=== PATIENT | female | born 1945 | race Caucasian/White ===

== ENCOUNTER 2019-11-10 09:02 | Outpatient (CLI) | payer MEDICARE, OTHER, SELFPAY ==
--- NOTE | ~2019-11-10 | MM_ITS ---
EXAMINATION: MM screening sheba BI w filemon HISTORY: Screening TECHNIQUE: Craniocaudal and mediolateral oblique 3-D tomosynthesis images were obtained and synthetic 2-D images were generated. CAD analysis was submitted and interpreted. COMPARISON: Comparison to multiple prior studies sequentially, with oldest reviewed study dated 09/09. BREAST PARENCHYMAL COMPOSITION: There are scattered areas of fibroglandular density. FINDINGS: There is no evidence of suspicious mass, calcification, or architectural distortion to sugg est malignancy in either breast. There has been no suspicious interval change. IMPRESSION: 1. No mammographic evidence of malignancy. 2. Recommend routine screening mammography in one year. BI-RADS Category 1: Negative Reviewed, dictated and finalized at location A.
== END 2019-11-10 09:03 | disposition home or self-care (01) ==
PROVIDERS: PCP Family Medicine; Visit Provider Family Medicine
DX: Z12.31 Encounter for screening mammogram for malignant neoplasm of breast (principal)
CPT/HCPCS: 77063; 77067

== ENCOUNTER 2020-02-07 00:35 | Outpatient (CLI) | payer MEDICARE, OTHER, SELFPAY ==
[2020-02-07 19:48] LABS: SARS-CoV-2 RNA PCR Negative
== END 2020-02-07 00:36 | disposition home or self-care (01) ==
LOC: ANHCOVIDDT 00:35
PROVIDERS: PCP Family Medicine; Visit Provider Internal Medicine Gastroenterology
DX: Z01.818 Encounter for other preprocedural examination (principal); Z20.828 Contact with and (suspected) exposure to other viral communicable diseases
CPT/HCPCS: 87635; C9803; U0003

== ENCOUNTER 2020-02-10 00:22 | Day surgery (SDC) | payer MEDICARE, OTHER, SELFPAY ==
[2020-02-03 14:31] VITALS: BMI 26.0
[2020-02-10 07:33] VITALS: BP 135/67; PULSE 65; RESP 16; TEMP 36.6; O2SAT 100; BMI 26.4
[2020-02-10] MEDS: LACTATED RINGERS 1,000 ML 150 ML IV CONT (07:44)
--- NOTE | 2020-02-10 07:58 | WPDANESEPPF ---
Anes - Initial Pre Proc Eval Procedure: Operation Date: 02/10/20 09:00 Proposed Procedures p Esophagogastroduodenoscopy - Farzad Buckley MD Date/Time: 02/10/20 07:58 Surgeon: Farzad Buckley MD Pre Op Diagnosis: Dyshphagia Patient Data Age: 74 Gender: F Height: 1.75 m Weight: 81.1 kg Last Vital Signs Temp 36.6 C 02/10/20 07:33 Pulse 65 02/10/20 07:33 Resp 16 02/10/20 07:33 BP 135/67 02/10/20 07:33 Pulse Ox 100 02/10/20 07:33 Allergies Allergy/AdvReac Type Severity Reaction Status Date / Time No Known Allergies Allergy Verified 02/10/20 07:32 Home Medications Medication Instructions Recorded Confirmed Type amitriptyline 25 mg PO DAILY 02/03/20 02/03/20 History pantoprazole 40 mg PO DAILY 02/03/20 02/03/20 History propranolol 40 mg PO DAILY 02/03/20 02/03/20 History simvastatin 40 mg PO DAILY 02/03/20 02/03/20 History Patient hx anesthesia problems: none Family hx anesthesia problems: none PMFSH Social History Social History Smoking status: Never smoker Alcohol intake: never Substance use type: does not use Living arrangements: alone Spiritual care concerns: No Anes - Eval Final PreProcedure Day of Procedure 02/10/20 07:58 Patient weight: overweight Heart: regular rate and rhythm Lungs: clear to auscultation and normal air movement Airway: Mallampati scale class II Neurological: alert and oriented Last oral intake: >/= 8 hours ASA classification: II Emergent: no Anesthetic plan: proceed Anesthesia type and monitoring: general GIVS Informed Consent: The patient's anesthetic plan and its attendant risks and benefits were discussed with the patient/family/POA. Questions were solicited and answers provided to the satisfaction of the patient/family/POA.
--- NOTE | 2020-02-10 08:07 | WPDGICN ---
Assessment and Plan Assessment and plan (1) Dysphagia: Code(s): R13.10 - Dysphagia, unspecified Status: Acute Assessment and Plan: patient has difficulty swallowing. Also has a history of acid reflux suspect that she may likely have esophageal web. Plan is for EGD to assess more thoroughly. At the present time continue anti reflux measures. Ppi should be continued. Further recommendations after endoscopy. GI Consult Note Consult date/time: 02/10/20 08:07 HPI: Nicolette Muniz is a 74 year old female Seen in evaluation at the request of Dr Daniel Araujo. patient has had difficulty swallowing for some time. Dating back at least 1 year. She states that food will catch in her throat. Typically this occurs with rice period as well as larger solid pieces of food. She denies any abdominal pain. She has intermittently had heartburn in the past for which she takes Protonix. She supplements this with Tums on a p.r.n. basis. She denies any ongoing heartburn. She denies any weight loss. She has had no bleeding. Her family history is noncontributory. Review of Systems Review of Systems: All systems reviewed & are unremarkable except as noted in HPI and below PMFSH Social History Social History Smoking status: Never smoker Alcohol intake: never Substance use type: does not use Living arrangements: alone Spiritual care concerns: No Meds Home Medications and Allergies Home Medications Medication Instructions Recorded Confirmed Type amitriptyline 25 mg PO DAILY 02/03/20 02/03/20 History pantoprazole 40 mg PO DAILY 02/03/20 02/03/20 History propranolol 40 mg PO DAILY 02/03/20 02/03/20 History simvastatin 40 mg PO DAILY 02/03/20 02/03/20 History Allergies Allergy/AdvReac Type Severity Reaction Status Date / Time No Known Allergies Allergy Verified 02/10/20 07:32 Vital Signs Vital Signs - 24 hr 02/10/20 07:33 Temperature 97.8 F Pulse Rate 65 Respiratory Rate 16 Blood Pressure 135/67 Pulse Oximetry 100 Exam Narrative: Exam Narrative: Physical exam reveals patient to be alert. Vital signs stable. HEENT exam unremarkable. Lungs are clear to auscultation and percussion. Heart is without murmur or extra sounds. Abdominal exam bowel sounds are present soft nontender with no organomegaly. Digital external rectal exam unremarkable
[2020-02-10] MEDS: BENZOCAINE (*SP) 60 ML SPRAY CAN (HURRICAINE) 1 SPRAY MUCOUS MEM (08:44)
[2020-02-10 08:54] VITALS: BP 137/67; PULSE 74; RESP 22; O2SAT 100
[2020-02-10 09:04] VITALS: BP 128/80; PULSE 67; RESP 22; O2SAT 100
[2020-02-10 09:14] VITALS: BP 131/68; PULSE 64; RESP 18; O2SAT 100
== END 2020-02-10 09:52 | disposition home or self-care (01) ==
PROVIDERS: PCP Family Medicine; Visit Provider Internal Medicine Gastroenterology
PROC: 0DJ08ZZ Inspection of Upper Intestinal Tract, Via Natural or Artificial Opening Endoscopic (ICD-10-PCS; CPT 43235; principal; 2020-02-10 09:00)
DX: Q39.4 Esophageal web (principal); K44.9 Diaphragmatic hernia without obstruction or gangrene
CPT/HCPCS: 43450; 43235; J2704; J7120

== ENCOUNTER 2021-02-05 00:36 | Day surgery (SDC) | payer MEDICARE, SELFPAY ==
[2021-01-16 14:49] VITALS: BMI 26.1
[2021-02-05 07:43] VITALS: BP 125/67; PULSE 75; RESP 16; TEMP 36.6; O2SAT 100; BMI 25.8
[2021-02-05] MEDS: LACTATED RINGERS 1,000 ML 150 ML IV CONT (07:52)
--- NOTE | 2021-02-05 08:08 | WPDANESEPPF ---
Anes - Initial Pre Proc Eval Procedure: Operation Date: 02/05/21 09:00 Proposed Procedures p Colonoscopy - Farzad Buckley MD Date/Time: 02/05/21 08:08 Surgeon: Farzad Buckley MD Pre Op Diagnosis: MARY Patient Data Age: 75 Gender: F Height: 1.73 m Weight: 77 kg Last Vital Signs Temp 36.6 C 02/05/21 07:43 Pulse 75 02/05/21 07:43 Resp 16 02/05/21 07:43 BP 125/67 02/05/21 07:43 Pulse Ox 100 02/05/21 07:43 Allergies Allergy/AdvReac Type Severity Reaction Status Date / Time No Known Allergies Allergy Verified 02/05/21 07:41 Home Medications Medication Instructions Recorded Confirmed Type amitriptyline 25 mg PO DAILY 02/03/20 02/05/21 History pantoprazole 40 mg PO DAILY 02/03/20 02/05/21 History propranolol 40 mg PO DAILY 02/03/20 02/05/21 History simvastatin 40 mg PO DAILY 02/03/20 02/05/21 History ferrous sulfate [FeroSul] 325 mg PO BID 01/16/21 02/05/21 History sumatriptan succinate [Imitrex] 50 mg PO Q4-6H PRN 01/16/21 02/05/21 History Patient hx anesthesia problems: none Family hx anesthesia problems: none Results Review: All pre-operative results and documents have been reviewed as part of the pre-operative evaluation. [facility] Past Medical History Medical History (Updated 02/05/21 @ 08:09 by Flex Ramirez MD) Chronic GERD Dysphagia Hyperlipidemia Social History Social History Smoking status: Never smoker Alcohol intake: never Substance use type: does not use Living arrangements: alone Spiritual care concerns: No Anes - Eval Final PreProcedure Day of Procedure 02/05/21 08:08 Patient weight: overweight Heart: regular rate and rhythm Lungs: clear to auscultation and normal air movement Airway: Mallampati scale class II Neurological: alert and oriented Last oral intake: >/= 8 hours ASA classification: II Emergent: no Anesthetic plan: proceed Anesthesia type and monitoring: general GIVS Results Review: All pre-operative results and documents have been reviewed as part of the pre-operative evaluation. Informed Consent: The patient's anesthetic plan and its attendant risks and benefits were discussed with the patient/family/POA. Questions were solicited and answers provided to the satisfaction of the patient/family/POA.
--- NOTE | 2021-02-05 08:12 | WPDGICN ---
Assessment and Plan Assessment and plan (1) MARY (iron deficiency anemia): Code(s): D50.9 - Iron deficiency anemia, unspecified Status: Acute Assessment and Plan: Patient has ongoing iron deficiency anemia. Previous EGD revealed no alarming findings. 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 Plan is for colonoscopy at this time because of iron deficient indices. If negative stool Hemoccult is advised. Iron replacement should resume after endoscopy. (2) Chronic GERD: Code(s): K21.9 - Gastro-esophageal reflux disease without esophagitis Status: Acute Assessment and Plan: Patient has chronic GE reflux. Would recommend continuing pantoprazole 40mg p.o. daily as well as anti-reflux measures. (3) Dysphagia: Code(s): R13.10 - Dysphagia, unspecified Status: Acute Assessment and Plan: Patient has recurrent dysphagia. 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 She has been maintained on PPI therapy. Plan is for follow-up EGD electively because of dysphagia as well as her iron deficiency. GI Consult Note Consult date/time: 02/05/21 08:12 HPI: Nicolette Muniz is a 75 year old female I am asked to see because of iron deficiency anemia. Patient has a history of chronic GE reflux disease. An EGD performed 1 year ago revealed distal esophageal web. This was dilated at that time. Patient has been maintained on pantoprazole 40mg p.o. daily. Lab tests have revealed that she has persistent iron deficient indices. For this reason she is referred for colonoscopy patient states that her bowel habits are normal. She denies abdominal pain. She has had no bleeding. Family history noncontributory. She does report occasional dysphagia that is return. Despite taking the pantoprazole. She denies any weight loss or obvious bleeding. Review of Systems Review of Systems: All systems reviewed & are unremarkable except as noted in HPI and below PMFSH Past Medical History Medical History (Updated 02/05/21 @ 08:15 by Farzad Buckley MD) Chronic GERD Dysphagia Hyperlipidemia Social History Social History Smoking status: Never smoker Alcohol intake: never Substance use type: does not use Living arrangements: alone Spiritual care concerns: No Meds Home Medications and Allergies Home Medications Medication Instructions Recorded Confirmed Type amitriptyline 25 mg PO DAILY 02/03/20 02/05/21 History pantoprazole 40 mg PO DAILY 02/03/20 02/05/21 History propranolol 40 mg PO DAILY 02/03/20 02/05/21 History simvastatin 40 mg PO DAILY 02/03/20 02/05/21 History ferrous sulfate [FeroSul] 325 mg PO BID 01/16/21 02/05/21 History sumatriptan succinate [Imitrex] 50 mg PO Q4-6H PRN 01/16/21 02/05/21 History Allergies Allergy/AdvReac Type Severity Reaction Status Date / Time No Known Allergies Allergy Verified 02/05/21 07:41 Vital Signs Vital Signs - 24 hr 02/05/21 07:43 Temperature 97.8 F Pulse Rate 75 Respiratory Rate 16 Blood Pressure 125/67 Pulse Oximetry 100 Exam Narrative: physical exam reveals patient be alert. Vital signs stable. HEENT exam reveals no icterus. Lungs are clear to auscultation and percussion. Heart is without murmur or extra sounds. Abdominal exam bowel sounds present soft nontender no hepatosplenomegaly. Digital external rectal exam is normal.
[2021-02-05 09:05] VITALS: BP 120/64; PULSE 77; RESP 14; O2SAT 100
[2021-02-05 09:15] VITALS: BP 130/68; PULSE 74; RESP 18; O2SAT 100
[2021-02-05 09:25] VITALS: BP 154/79; PULSE 66; RESP 13; O2SAT 100
== END 2021-02-05 09:37 | disposition home or self-care (01) ==
PROVIDERS: PCP Family Medicine; Visit Provider Internal Medicine Gastroenterology
PROC: 0DJD8ZZ Inspection of Lower Intestinal Tract, Via Natural or Artificial Opening Endoscopic (ICD-10-PCS; CPT 45378; principal; 2021-02-05 09:00)
DX: D50.9 Iron deficiency anemia, unspecified (principal); K64.8 Other hemorrhoids; K57.30 Diverticulosis of large intestine without perforation or abscess without bleeding; K21.9 Gastro-esophageal reflux disease without esophagitis; R13.10 Dysphagia, unspecified; E78.5 Hyperlipidemia, unspecified
CPT/HCPCS: 45378; J2704; J7120

== ENCOUNTER → 2021-11-11 09:49 | Outpatient (CLI) | payer MEDICARE, SELFPAY ==
--- NOTE | ~2021-11-11 | XR_ITS ---
EXAMINATION: XR hip LT min 2V INDICATION: Left hip pain TECHNIQUE: Two views of the left obtained. COMPARISON: 06/07/2004 FINDINGS: Bone alignment is normal. There is no fracture. There is mild osteoarthritis of the hip. Th e soft tissues are unremarkable. IMPRESSION: 1. Mild osteoarthritis without acute osseous abnormality. Reviewed, dictated and finalized at location A.
== END ==
PROVIDERS: PCP Physician Assistant; Visit Provider Physician Assistant
DX: M16.12 Unilateral primary osteoarthritis, left hip (principal)
CPT/HCPCS: 73502

== ENCOUNTER 2023-11-04 08:28 | Outpatient (CLI) | payer MEDICARE, SELFPAY ==
--- NOTE | ~2023-11-04 | DEXA_ITS ---
Bone Density Report Name: CLARE NEFF Age: 78 Sex: Female Ethnicity: White Date of : 1945 Indication: postmenopausal; screening for osteoporosis; height loss; cancer; Referring Provider: SUSANNA SCOTT Study: Bone densitometry was performed. Exam Date: November 04, 2023 Accession number: [id number] Bone Density: Region BMD T-score Z-score Classification AP Spine(L1-L4) 1.054 0.1 2.6 Normal Femoral Neck (Left) 0.725 -1.1 1.1 Osteopenia Total Hip (Left) 0.848 -0.8 1.1 Normal Femoral Neck (Right) 0.744 -0.9 1.2 Normal Total Hip (Right) 0.863 -0.6 1.2 Normal Total Hip Mean 0.856 -0.7 1.2 Normal World Health Organization criteria for BMD impression classify patients as: Normal (T-score at or above -1.0), Osteopenia (T-score between -1.0 and -2.5), or Osteoporosis (T-score at or below -2.5). 10-year Fracture Risk(1): Major Osteoporotic Fracture 11% Hip Fracture 1.9% Reported Risk Factors: [place] (), Neck BMD=0.725, BMI=28.0 (1) FRAX(R) Version 3.08. Fracture probability calculated for an untreated patient. Fracture probability may be lower if the patient has received treatment. Clinical Information Provided by Patient: Has the following medical conditions: Cancer Patient maximum height was 69.0 No regular weight bearing exercise Drinks caffeinated beverages Onset of menses at age 20 Number of children 2 Impression: The patient has low bone mass, based on the Left Femoral Neck T-score. The patient has an estimated ten-year risk of hip fracture of 1.9% and an estimated ten-year risk of major fracture of 11%, based on the WHO FRAX algorithm. Discussion: BONE DENSITY IS LOW AT ONE OR MORE SKELETAL SITES. This patient's lowest T-score is low at one or more skeletal sites. It meets the World Health Organization's (WHO) criteria for ?low bone mass? (T-score between -1.0 and -2.5). The patient's 10-year risk of fracture as calculated by FRAX is less than the threshold where pharmacological therapy is recommended by the National Osteoporosis Foundation (NOF). However, all treatment decisions require clinical judgment and consideration of individual patient factors, including patient preferences, comorbidities, previous drug use, risk factors not captured in the FRAX model (e.g., frailty, falls, vitamin D deficiency, increased bone turnover, interval significant decline in bone density) and possible under or overestimation of fracture risk by FRAX. The patient should follow a healthful lifestyle (good nutrition with adequate calcium and vitamin D, and appropriate weight-bearing exercise). Follow-Up: Consider repeating this study in 2 to 3 years to reassess this patient's status, or sooner if there is some new clinical indication. Reported by: DANNI on
--- NOTE | ~2023-11-04 | MM_ITS ---
EXAMINATION: MM screening sheba BI w filemon HISTORY: Screening TECHNIQUE: Craniocaudal and mediolateral oblique 3-D tomosynthesis images were obtained and synthetic 2-D images were generated. CAD analysis was submitted and interpreted. COMPARISON: Comparison to multiple prior studies sequentially, with oldest reviewed study dated 06/2016. BREAST PARENCHYMAL COMPOSITION: Not dense: There are scattered areas of fibroglandular density. FINDINGS: The right breast is stable without evidence for malignancy. There is a developing asymmetry in the mid outer aspect of the left breast, middle third and a mass in the upper outer quadrant of t he left breast which appears increased in density on MLO view. The right breast is stable without tiffany dence for malignancy. IMPRESSION: 1. Increasing density of left breast mass, upper outer quadrant and new developing asymmetry in the u pper outer quadrant. 2. Additional mammographic views and possible breast ultrasound are recommended. BI-RADS Category 0: Incomplete: Needs additional imaging evaluation. Reviewed, dictated and finalized at location B. IMPRESSION: 1. Increasing density of left breast mass, upper outer quadrant and new develop ing asymmetry in the upper outer quadrant. 2. Additional mammographic views and possible breast ultrasound are recommended . BI-RADS Category 0: Incomplete: Needs additional imaging evaluation.
== END 2023-11-04 08:29 | disposition home or self-care (01) ==
LOC: ANHIMG 08:32
PROVIDERS: PCP Family Medicine; Visit Provider Physician Assistant
DX: Z12.31 Encounter for screening mammogram for malignant neoplasm of breast (principal); N63.21 Unspecified lump in the left breast, upper outer quadrant; R92.8 Other abnormal and inconclusive findings on diagnostic imaging of breast; M85.89 Other specified disorders of bone density and structure, multiple sites; Z78.0 Asymptomatic menopausal state; Z13.820 Encounter for screening for osteoporosis
CPT/HCPCS: 77063; 77067; 77080

== ENCOUNTER 2023-11-24 10:54 | Outpatient (CLI) | payer MEDICARE, SELFPAY ==
--- NOTE | ~2023-11-24 | MMUS_ITS ---
EXAMINATION: MM diagnostic sheba LT w filemon, US breast LT limited HISTORY: Follow-up left breast mass TECHNIQUE: Additional 3-D tomosynthesis images of the left breast were performed and synthetic 2-D im ages were generated. CAD analysis was submitted and interpreted. High resolution Limited left breast ultrasound was performed. COMPARISON: Comparison to multiple prior studies sequentially, with oldest reviewed study dated 06/2016. BREAST PARENCHYMAL COMPOSITION: Not dense: There are scattered areas of fibroglandular density. FINDINGS: MAMMOGRAPHIC FINDINGS: There is a low-density mass in the upper outer quadrant of the left breast anteriorly. There are no s uspicious calcifications or architectural distortion. ULTRASOUND: Limited left breast ultrasound: At 12:30, 3 cm from the nipple there is a 9 mm cyst. At 6:00, 6 cm fr om the nipple there is a 5 mm complicated cysts. No suspicious masses to suggest malignancy. IMPRESSION: 1. No evidence for malignancy in the left breast. 2. Routine yearly screening mammogram and regular clinical breast examination are recommended. BI-RADS Category 2: Benign finding(s). Reviewed, dictated and finalized at location B. IMPRESSION: 1. No evidence for malignancy in the left breast. 2. Routine yearly screening mammogram and regular clinical breast examination a re recommended. BI-RADS Category 2: Benign finding(s).
== END 2023-11-24 10:55 | disposition home or self-care (01) ==
LOC: ANHIMG 10:56
PROVIDERS: PCP Family Medicine; Visit Provider Physician Assistant
DX: N63.25 Unspecified lump in the left breast, overlapping quadrants (principal)
CPT/HCPCS: 76642; 77061; 77065; G0279

== ENCOUNTER 2024-06-15 07:21 | Emergency (ER) | payer MEDICARE, SELFPAY ==
--- NOTE | ~2024-06-15 | CT_ITS ---
CTA brain carotid Ordering provider: Alma Wood MD History: . dizziness . Comparison: August 10, 2015 Technique: CT angiogram head was performed following timed intravenous injection of contrast. Thin sl ice axial images and reformatted coronal images were obtained. Three dimensional reformatted images o f the brain were also obtained using a Vitrea workstation. Radiation reduction technique utilized. Th e dose-length product was 1616.49 mGy-cm. 100 mL Omnipaque 350 was given IV. FINDINGS: --ANTERIOR AND MIDDLE CEREBRAL ARTERIES AND BRANCHES: Normal caliber and contour. --INTERNAL CAROTID ARTERIES: Mild atheromatous disease but no significant stenosis. No occlusion. --BASILAR ARTERY AND BRANCHES: Small caliber and normal contour. No atheromatous disease. --POSTERIOR CEREBRAL ARTERIES: Normal caliber and contour --POSTERIOR COMMUNICATING ARTERIES: visualized bilaterally and continues as the posterior cerebral ar teries. --ANEURYSM: None visualized. --BRAIN: Normal for patient's age. --BONES AND SUPERFICIAL SOFT TISSUES: Normal. --PARANASAL SINUSES AND MASTOIDS: Normal. IMPRESSION: Posterior communicating arteries continue as the posterior cerebral arteries. Small caliber of the ba silar artery. Otherwise, Normal CTA head. CTA brain carotid Ordering provider: Alma Wood MD History: . dizziness . Comparison: None. Technique: CT angiogram neck was performed following timed intravenous injection of contrast. Thin sl ice axial images and reformatted coronal images were obtained. Three dimensional reformatted images o f the neck were also obtained using a HASHa workstation. Automated exposure control and iterative re construction technique were employed. The dose-length product was 1616.49 mGy-cm. 100 mL Omnipaque 35 0 was given IV. FINDINGS: RIGHT CERVICAL CAROTID ARTERY: Normal caliber and contour. Percent stenosis per NASCET criteria is 0 %. No carotid dissection. Otherwise, no significant atheromatous disease or stenosis of the cervical carotid system. LEFT CERVICAL CAROTID ARTERY: Mild atheromatous disease of the carotid bulb and proximal internal car otid artery without significant stenosis. Percent stenosis per NASCET criteria is 10%. No carotid di ssection. Otherwise, no significant atheromatous disease or stenosis of the cervical carotid system. VISUALIZED BILATERAL INTRACRANIAL CAROTID ARTERIES: Mild atheromatous disease. VERTEBRAL BASILAR SYSTEM: Small caliber and normal contour VISUALIZED AORTIC ARCH AND BRANCHING VESSELS: Mild atheromatous disease but no significant stenosis. SOFT TISSUES: Normal. Atelectatic changes in the lung apices. CERVICAL SPINE: Age appropriate degenerative changes. IMPRESSION: Normal CTA neck. Percent stenosis per NASCET criteria is 0% on the right and 10% on the left side. Reviewed, dictated and finalized at location A. IMPRESSION: Posterior communicating arteries continue as the posterior cerebral arteries. S mall caliber of the basilar artery. Otherwise, Normal CTA head. CTA brain carotid Ordering provider: Alma Wood MD History: . dizziness . Comparison: None. Technique: CT angiogram neck was performed following timed intravenous injectio n of contrast. Thin slice axial images and reformatted coronal images were obta ined. Three dimensional reformatted images of the neck were also obtained using a Vitrea workstation. Automated exposure control and iterative reconstruction technique were employed. The dose-length product was 1616.49 mGy-cm. 100 mL Omn ipaque 350 was given IV. FINDINGS: RIGHT CERVICAL CAROTID ARTERY: Normal caliber and contour. Percent stenosis per NASCET criteria is 0%. No carotid dissection. Otherwise, no significant ather omatous disease or stenosis of the cervical carotid system. LEFT CERVICAL CAROTID ARTERY: Mild atheromatous disease of the carotid bulb and proximal internal carotid artery without significant stenosis. Percent stenosi s per NASCET criteria is 10%. No carotid dissection. Otherwise, no significant atheromatous disease or stenosis of the cervical carotid system. VISUALIZED BILATERAL INTRACRANIAL CAROTID ARTERIES: Mild atheromatous disease. VERTEBRAL BASILAR SYSTEM: Small caliber and normal contour VISUALIZED AORTIC ARCH AND BRANCHING VESSELS: Mild atheromatous disease but no significant stenosis. SOFT TISSUES: Normal. Atelectatic changes in the lung apices. CERVICAL SPINE: Age appropriate degenerative changes. IMPRESSION: Normal CTA neck. Percent stenosis per NASCET criteria is 0% on the right and 1 0% on the left side.
[2024-06-15 07:12] VITALS: BP 181/80; PULSE 67; RESP 18; TEMP 36.4; O2SAT 98
--- NOTE | 2024-06-15 07:21 | ECG_ITS ---
Test Date: 2024-06-15 07:27:21 Measurements Intervals [place] Rate: 69 P: -18 VT: 134 QRS: 21 QRSD: 100 T: 27 QT: 391 QTc: 422 Interpretive Statements SINUS RHYTHM NORMAL ECG No previous ECG available for comparison Electronically Signed On 06-15-2024 12:26:20 CDT by Darwin Block M.D.
[2024-06-15 07:25] VITALS: BP 181/80; PULSE 70
[2024-06-15 07:26] VITALS: BP 201/80; PULSE 79
[2024-06-15 07:41] LABS: Basophils Absolute Auto 0.1 K/mm3 (0.0-0.1); Basophils Percent Auto 1.1 % (0.2-1.2); Eosinophils Absolute Auto 0.2 K/mm3 (0-0.3); Eosinophils Percent Auto 2.4 % (0-4.4); Hematocrit 41.4 % (37.0-47.0); Hemoglobin 13.1 g/dL (12.0-15.0); Immature Granulocyte Absolute 0.02 K/mm3 (0.00-0.031); Immature Granulocyte Percent A 0.3 % (0-0.5); Lymphocytes Percent Auto 22.8 % (18.3-44.2); Mean Corpuscular HGB Conc 31.6 g/dl (32-36); Mean Corpuscular Hemoglobin 29.4 pg (26-34); Mean Corpuscular Volume 92.8 fl (80-100); Mean Platelet Volume 9.4 fl (7.4-10.4); Monocytes Absolute Auto 0.6 K/mm3 (0.1-0.6); Monocytes Percent Auto 8.7 % (2.6-8.5); Neutrophils Absolute Auto 4.5 K/mm3 (1.3-6.7); Neutrophils Percent Auto 64.7 % (45.5-73.1); Platelet Count Result 293 k/mm3 (150-375); Red Blood Count 4.46 M/mm3 (4.2-5.4)
--- NOTE | 2024-06-15 07:45 | ED.DIZZY ---
HPI - Dizziness General Chief Complaint: Dizziness Stated Complaint: dizzy Time Seen by Provider: 06/15/24 07:35 Source: patient and family Limitations: no limitations History of Present Illness HPI Narrative: Patient presents with report of dizziness. Experiencing nausea, especially w/ movement. Can't get her bearings. Children think speech slurred. No meds taken yet. On amytriptiline for migraines. History basal cell cancer s/p Mohs for removal and photodynamic therapy yesterday for which she has been avoiding light. Denies ear pain, fullness, or tinnitus. No paresthesias. Had near syncope. Doesn't feel like room is spinning but having dysequilibrium. Got lightheaded. No blurred vision or diplopia. She reports awakening and symptoms started, believes possibly when she turned her head to the side though unknown which way. No headache. Takes simvastatin and 12mg amytriptiline. No recent falls. Has prescriptoin for Imitrex but last taken 2-3 months ago. This has never happened before. Related Data Home Medications ?Medication ?Instructions ?Recorded ?Confirmed ?Last Taken ?Type propranolol 40 mg tablet 40 mg PO DAILY 02/03/20 05/07/22 Unknown History Allergies Allergy/AdvReac Type Severity Reaction Status Date / Time No Known Allergies Allergy Verified 06/15/24 07:27 [facility] Past Medical History Medical History Skin cancer Insomnia Mixed incontinence Migraines MARY (iron deficiency anemia) Chronic GERD Hyperlipidemia Surgical History Surgical History Hx of bilateral cataract extraction 2022 History of removal of cyst Left Breast 1973 History of tubal ligation History of colonoscopy Family History Family History Mother Carcinoma of colon Bladder cancer Father Heart disease Sibling Non Hodgkin's lymphoma Brain cancer Social History Social History Smoking status: Never smoker Alcohol intake: never Substance use: never Substance use type: does not use Do You Feel Safe in your Home?: Yes Lack of Transportation: No Lack of Food: Never True Current Housing: I Have Housing Concerned About Future Housing: No Difficulty Paying Gas/Electric Bills: No Difficulty Paying for Meds: No Currently Unemployed: No Education: Trade/Vocational Certificate Living arrangements: with family Occupation/Education: retired Gender identity (if verbalized by the patient): Female Sexual Orientation (if Verbalized by the Patient): Straight or Heterosexual Spiritual care concerns: No Exam Narrative: GENERAL: Well-appearing, well-nourished, and in no acute distress. HEAD: Normocephalic, atraumatic. EYES: Non injected, non icteric. Horizontal extraocular movements intact but with bilateral mild/faint bilateral left beating nystagmus, fatigable after 3 beats. No vertical nystagmus. No loss of peripheral visual iyer. ENT: Nares clear, no rhinorrhea or epistaxis. Left tympanic membrane easily visualized and pearly smith. No erythema in external auditory canals. Right external auditory canal with cerumen but it is not impacted. NECK: Supple. CHEST: Speaking in full sentences. No respiratory distress. HEART: Regular rate and rhythm. . ABDOMEN: Soft, nondistended. EXTREMITIES: Normal range of motion. No lower extremity edema. SKIN: Warm, dry, no rash. NEURO: No focal deficits. Alert and oriented x3. Nurscw-ahhz-drklin bilaterally symmetric without ataxia. Patient speaks clearly w/o expressive/receptive aphasia or dysarthria. No extinction. Answers all questions appropriately. No abnormal movements appreciated. No motor drift. Sensation intact throughout. PSYCH: Normal mood and affect. Course Vital Signs Vital signs: Vital Signs Temperature 97.6 F 06/15/24 07:12 Pulse Rate 67 06/15/24 07:12 Respiratory Rate 18 06/15/24 07:12 Blood Pressure 181/80 H 06/15/24 07:12 Pulse Oximetry 98 06/15/24 07:12 Oxygen Delivery Room Air 06/15/24 07:12 Temperature 97.6 F 06/15/24 07:12 Pulse Rate 63 06/15/24 10:32 Respiratory Rate 13 06/15/24 10:32 Blood Pressure 136/59 L 06/15/24 10:32 Pulse Oximetry 98 06/15/24 10:32 Oxygen Delivery Room Air 06/15/24 07:12 MDM - Dizziness MDM Narrative Medical decision making narrative: Patient presents with acute onset dizziness, lightheadedness, dysequilibrium and nausea upon awakening. She believes symptoms were preceded by her turning her head though unsure. Does not quite describe room spinning though admits it is hard to describe. In the emergency department she is afebrile with vital signs notable for hypertension. If vertiginous, DIFFERENTIAL DIAGNOSES Central causes: infection ( encephalitis, meningitis, cerebritis); vertebrobasilar arterial insufficiency, subclavian steal syndrome, cerebellar or brainstem hemorrhage or infarction, vertebrobasilar migraine, trauma ( temporal bone fracture, post concussive syndrome); tumor (brainstem or cerebellum); MS; temporal lobe epilepsy Peripheral causes: Foreign body, cerumen impaction, acute otitis media, labyrinthitis, benign paroxysmal positional vertigo, Meniere's disease, vestibular neuronitis, perilymphatic fistula, trauma, motion sickness, acoustic neuroma, ototoxic medications Patient's description of symptoms occurring when she turned her head and especially exacerbated by this maneuver do sound consistent with BPPV. She does have other risk factors so will proceed with imaging (age, diagnosis of skin cancer s/p Moh's so in theory in remission but photodynamic therapy yesterday and cancer with proclivity to metastesize to brain) Patient reassessed after dose of meclizine and is feeling markedly improved. She no longer has nausea or any of her other symptoms vertiginous or otherwise -no lightheadedness, dizziness, or disequilibrium although she states she has not got a bed. Gait assessment is performed by nurse who states that she does well, steady on her feet and patient reports continuing to feel good. Discussed the presumptive diagnosis but the level of uncertainty. Advised follow up and strict ED return follow up. Provided Rx for meclizine in the interim. Proivded referral contact info for both ENT and neurology if persistent episodes that seem to be consistent with BPPV. Differential Diagnosis Differential diagnosis: Likely other (hypertensive crisis; migraine) Lab Data Attestation: I reviewed the patient's lab results. 06/15/24 07:36 06/15/24 07:36 Labs: Lab Results 06/15/24 Range/Units 07:36 WBC 7.0 (4.5-10.0) K/mm3 RBC 4.46 (4.2-5.4) M/mm3 Hgb 13.1 (12.0-15.0) g/dL Hct 41.4 (37.0-47.0) % MCV 92.8 (80-100) fl MCH 29.4 (26-34) pg MCHC 31.6 L (32-36) g/dl RDW 13.0 (11.5-14.5) % Plt Count 293 (150-375) k/mm3 MPV 9.4 (7.4-10.4) fl Immature Gran % (Auto) 0.3 (0-0.5) % Neut % (Auto) 64.7 (45.5-73.1) % Lymph % (Auto) 22.8 (18.3-44.2) % Humphreys % (Auto) 8.7 H (2.6-8.5) % Eos % (Auto) 2.4 (0-4.4) % Baso % (Auto) 1.1 (0.2-1.2) % Lymph # (Auto) 1.60 (0.9-3.2) K/mm3 Humphreys # (Auto) 0.6 (0.1-0.6) K/mm3 Eos # (Auto) 0.2 (0-0.3) K/mm3 Baso # (Auto) 0.1 (0.0-0.1) K/mm3 Abs Immat Gran (auto) 0.02 (0.00-0.031) K/mm3 Absolute Neuts (auto) 4.5 (1.3-6.7) K/mm3 Absolute Nucleated RBC 0.000 (0.0-0.012) K/mm3 Nucleated RBC % 0.0 (0.0-0.2) % Sodium 139 (137-145) mmol/L Potassium 3.9 (3.4-5.0) mmol/L Chloride 105 (98-107) mmol/L Carbon Dioxide 27 (22-30) mmol/L Anion Gap 7 (4-12) mmol/L BUN 15 (7-17) mg/dL Creatinine 0.80 (0.7-1.0) mg/dL Estim Creat Clear Calc 52 ml/min Estimated GFR > 60 (59 - ) Glucose 124 H (65-110) mg/dL Calcium 9.6 (8.4-10.2) mg/dL Total Bilirubin 0.5 (0.2-1.3) mg/dL AST 21 (14-36) U/L ALT 19 (6-35) U/L Alkaline Phosphatase 71 (38-126) U/L Troponin I < 0.012 (0.000-0.034) ng/mL Total Protein 7.0 (6.3-8.2) g/dL Albumin 4.3 (3.5-5.1) g/dL Imaging Data Radiologist's impression: IMPRESSION: Normal CTA neck. Percent stenosis per NASCET criteria is 0% on the right and 10% on the left side. ECG Data EKG #1: Attestation: I personally reviewed and interpreted this ECG as follows: ECG completion date: 06/15/24 ECG completion time: 07:27 Interpretation: Normal sinus rhythm at a rate of 69 beats per minute. VA interval 134. QRS 100. QT/QTC 391/411. Good R-wave progression across the precordial leads. T-wave inversion isolated to lead 3 but otherwise upright in normal in contiguous inferior leads 2 and AVF. No other T-wave inversion. Normal ECG. Discharge Plan Discharge Clinical Impression: Near syncope, Left carotid artery stenosis, Dizziness Patient Disposition: Home, Self-Care Condition: Stable Instructions: Antibiotic Form, Vertigo (DC), Carotid Artery Disease (DC), Benign Paroxysmal Positional Vertigo (DC), Near Syncope (ED), Lightheadedness (ED), Dizziness (ED) Additional Instructions: As we discussed, the exact etiology of your symptoms is hard to explicitly diagnose given you had features of dizziness/lightheadedness as well as disequilibrium and vertigo. The fact that your symptoms were preceded her exacerbated by movement of her head does suggest possible BPPV like we talked about, especially given your positive response to the medication given. Other considerations are included in your discharge instructions. Recommend continue to take your medications as prescribed and you can trial this medication again. Follow-up with primary care physician. If you do not have 1 the name of doctors listed below. If this continues to occur you can also elect to follow-up with ENT (ear nose and throat)/otolaryngology or a neurologist, both the specialists deal with these conditions. Referral contact information has been provided for all below. Return to the emergency department with any new or worsening symptoms. You had a small degree (10%) carotid artery stenosis on the left. Your primary care physician can also help arrange follow-up for continued monitoring for this as needed. If you do not have a primary care physician the name of 1 is listed below Patient Language: Dominican Prescriptions: New meclizine 25 mg tablet,chewable 25 mg PO DAILY PRN (Reason: dizziness) Qty: 20 0RF No Action tolterodine 4 mg capsule,extended release 24hr 4 mg PO DAILY Qty: 30 3RF docusate sodium [Colace] 100 mg capsule 100 mg PO DAILY Qty: 30 0RF propranolol 40 mg tablet 40 mg PO DAILY amitriptyline 25 mg tablet See Rx Instructions .ROUTE .COMPLEX Qty: 90 3RF Dose Instruction: TAKE 1 TABLET AT BEDTIME Rx Instructions: TAKE 1 TABLET AT BEDTIME pantoprazole 40 mg tablet,delayed release (DR/EC) See Rx Instructions .ROUTE .COMPLEX Qty: 90 3RF Dose Instruction: TAKE 1 TABLET EVERY DAY Rx Instructions: TAKE 1 TABLET EVERY DAY simvastatin 40 mg tablet 40 mg PO DAILY Qty: 90 3RF meloxicam 15 mg tablet 15 mg PO DAILY Qty: 90 1RF ferrous sulfate [FeroSul] 325 mg (65 mg iron) tablet 325 mg PO BID Qty: 180 1RF sumatriptan succinate 50 mg tablet See Rx Instructions .ROUTE .COMPLEX Qty: 27 3RF Dose Instruction: TAKE 1 TAB ONCE NEEDED FOR MIGRAINE HEADACHE; MAY REPEAT IN 2 HRS IF NEEDED. MAXIMUM DOSE OF 200 MG PER 24 HRS Rx Instructions: TAKE 1 TAB ONCE NEEDED FOR MIGRAINE HEADACHE; MAY REPEAT IN 2 HRS IF NEEDED. MAXIMUM DOSE OF 200 MG PER 24 HRS Follow-up/Referrals: Gonsalo Munson MD [Physician] - (Ear, nose, throat) Sallie Oreilly MD [Physician] - (Family practice/primary care physician) Rci Chatman MD [Physician] - (Neurology) UNKNOWN,DOCTOR [Non-Staff] - Stand Alone Forms: Work/School Release IP Time of Disposition: 11:24
[2024-06-15 07:51] LABS: Alanine Aminotransferase 19 U/L (6-35); Albumin Level 4.3 g/dL (3.5-5.1); Alkaline Phosphatase 71 U/L (38-126); Anion Gap 7 mmol/L (4-12); Aspartate Amino Transferase 21 U/L (14-36); Bilirubin,Total 0.5 mg/dL (0.2-1.3); Blood Urea Nitrogen 15 mg/dL (7-17); Calcium 9.6 mg/dL (8.4-10.2); Carbon Dioxide 27 mmol/L (22-30); Chloride 105 mmol/L (98-107); Estimated CRCL calculation 52 ml/min; Estimated Glomerular Filt Rate > 60; Glucose 124 mg/dL (65-110); Potassium 3.9 mmol/L (3.4-5.0); Sodium 139 mmol/L (137-145)
[2024-06-15 08:02] LABS: Troponin I < 0.012 ng/mL (0.000-0.034)
--- OUTSIDE RECORDS SUMMARY | 2024-06-15 08:10 | XMS_ITS | Continuity of Care Document ---
Author Organization [facility] Address [address] [place] [address] [place] [address] Phone Care Team Providers Care Pattern Fitter Name Role Phone Mims OD, Farzad Unavailable Unavailable Advance Directives Directive Yes / No Effective Date File Name No Information Encounters Encounter Description Practice Location Reason(s) For Visit Diagnoses Date Provider Providers Copied on Encounter [facility], [address], [place], [place], [id number], [place] tel:[phone] [facility] No Information May-0 1-200 1 Mims OD Farzad. [address] , [address], [place], [address], [place]. tel:[phone] Family History Family Member Type Diagnosis Age At Onset No Information Payers Payer name Insurance type Covered green party ID Authoriza tion(s) No Information Social History Type Description Quantity Date Captured Comments Sex Female Smoking Status No Information Chief Complaint And Reason For Visit No Information Reason For Referral Reason For Referral No Information History Of Present Illness Encounter Date Complaint History Of Prese nt Illness No Information Functional Status Date Functional Assessmen t No Information Instructions Date Instruction Additional Infor mation No Information Assessments Type Assessment Date No Information Patient Care Teams Name Effective Dates (start - stop) Status Members No Information
--- OUTSIDE RECORDS SUMMARY | 2024-06-15 08:10 | XMS_ITS | CONTINUITY OF CARE DOCUMENT ---
Author Name benjamin alexander Address Unknown Organization [facility] Address [address] [facility] [address] [place] [address] Phone [phone] Care Team Providers Care Instrumentation Instructor Name Role Phone Lance LOREDO, Enrique Unavailable [phone] Azucena Rahman Unavailable [phone] Azucena Rahman Unavailable VITAL SIGNS Date Observation Value Provider weight E&M 176 [lb_av] Christie Jasmine height E&M 69 [in_i] Christie Jasmine INSURANCE PROVIDERS Payer name Policy type / Coverage type Yamileth red libertarian [id number] [place] [employer] Medicare [id number]
--- OUTSIDE RECORDS SUMMARY | 2024-06-15 08:11 | XMS_ITS | Clinical Summary ---
Author Organization [facility] Address [facility] [place] [address] Care Team Providers Care Beef Cattle Farm Worker Name Role Phone Ashli Acevedo MD Primary Care Provider + Allergies No known active allergies Medications SUMAtriptan (IMITREX) 50 MG tablet Take 1 tablet (50 mg total) by mouth. Active ferrous sulfate, 65 mg elemental, 325 (65 FE) MG tablet Take 1 tablet (325 mg total) by mouth 2 (two) times a day. Active simvastatin (ZOCOR) 40 MG tabletIndications: Mixed hyperlipidemia Take 1 tablet (40 mg total) by mouth daily. Do not fill until patient requests 90 tablet 3 4 12/17/19 25 Active conjugated estrogens (PREMARIN) 0.625 MG/GM vaginal creamIndications:L ichen planus Place 0.5 g vaginally daily. 30 g 4 Active pantoprazole EC (PROTONIX) 20 MG tabletIndications: Gastroesophageal reflux disease without esophagitis Take 1 tablet (20 mg total) by mouth daily. 90 tablet 3 4 01/14/20 25 Active clobetasol (TEMOVATE) 0.05 % creamIndications:L ichen planus Apply topically 3 (three) times a week. Apply to external genitalia 30 g 4 Active amitriptyline (ELAVIL) 25 MG tabletIndications: Migraine without aura and without status migrainosus, not intractable Take 0.5 tablets (12.5 mg total) by mouth nightly at bedtime. 45 tablet 3 5 06/14/19 26 Active Active Problems Problem Noted Date Diagnosed Date Mixed hyperlipidemia 12/17/2023 Overview (12/17/2023): Patient taking simvastatin. Tolerating well. Assessment & Plan (03/15/2024 9:47 AM PAINT LINE PRODUCTION SUPERVISOR): Repeat lipid panel and CMP next visit in November. Continue simvastatin. Assessment & Plan (12/17/2023 1:33 PM CDT): Will assess control with CMP and lipid panel. Continue simvastatin. Migraine without aura 12/17/2023 Overview (03/15/2024): They were severe while was living and ill. No recent headaches. Patient was taking amitriptyline 25 mg nightly to help manage symptoms. She has now reduced to 12.5 mg nightly. She notes that symptoms are unchanged and she is interested in further reductions. Assessment & Plan (03/15/2024 9:47 AM PAINT LINE PRODUCTION SUPERVISOR): Controlled. Possibly side effects of fatigue with amitriptyline. Will discontinue amitriptyline and monitor fatigue to see if this improves. Assessment & Plan (01/14/2024 1:36 PM CDT): Currently controlled. Stress headaches may be unrelated to amitriptyline adjustment. We will continue with the lower dose without discontinuing amitriptyline at this time. Assessment & Plan (12/17/2023 1:34 PM CDT): Well-controlled. Chronic. Recommend she reduce her amitriptyline to 12.5 mg for 1 month and then eliminate the medication altogether. Continue sumatriptan as needed. GERD (gastroesophageal reflux disease) 4 Overview (01/14/2024): At last visit her GERD was resolved. She reduced her pantoprazole to 20 mg daily and notes symptoms are generally controlled. She has occasional Tums to help manage symptoms. Assessment & Plan (01/14/2024 1:37 PM CDT): Will continue with the lower dose pantoprazole 20 mg daily and consider further reductions in the future. Assessment & Plan (12/17/2023 1:35 PM CDT): Symptoms currently well-controlled. Will trial reduction of pantoprazole to 20 mg daily x 1 month and then eliminate to see response and determine whether we can discontinue this medication. Discussed risks of long-term use of this medication. Lichen planus 12/17/2023 Overview (03/15/2024): Her primary symptoms were urinary incontinence and physical distortion. Incontinence symptoms persist. Assessment & Plan (03/15/2024 9:47 AM PAINT LINE PRODUCTION SUPERVISOR): Improved tissue viability and reduced atrophy. Will continue to use clobetasol and Premarin cream 3 times weekly to manage. Assessment & Plan (01/14/2024 1:38 PM CDT): Improved but not yet controlled. Tissue appears more robust with the addition of estrogen. Will add clobetasol 3 times weekly to see if we can improve findings. She will continue with Kegel exercises in the meantime. Assessment & Plan (12/17/2023 1:39 PM CDT): New diagnosis. Will be chronic. Will trial Premarin cream x 1 month and revisit. Suspect she will also require corticosteroid topically. Basal cell carcinoma (BCC) of skin of nose 09/21 Encounters Date Type Department Care Team Description 06/13/2024 Telephone [facility] Family Medicine - [place] [address] [place], [place] [id number] Ashli Acevedo MD Refill Request from Last 3 Months Immunizations Name Administration Dates Next Due Fluzone High Dose (IIV, triv alent, 0.5mL) 01/14/2024,02/04/2022,02/11/2021,2019 Fluzone High Dose - >Age 65 (Prefilled Syringe) 04/12/2020 Influenza Adult (Generic) 03/01/2018,04/23/2017 Pneumococcal (Prevnar 13) 04/21/2019 Tdap (Generic) 03/01/2018 Family History Medical History Relation Comments Skin cancer Brother No Known Problems Daughter Valvular heart disease Father Alcohol Abuse Mother Cancer Mother Keith/bladder Cancer Sister Non-hodgkins No Known Problems Son Relation Status Comments Brother Alive Daughter Alive Father Mother Sister Son Alive Social History Tobacco Use Types Packs/Day Years Used Date Smoking Tobacco: Never Passive Smoke Exposure: Never Smokeless Tobacco: Never Tobacco Cessation:Counseling Given: No Alcohol Use Standard Drinks/Week Comments Not Currently 0 (1 standard drink = 0.6 oz pur e alcohol) Quit 45 years ago PHQ-2 Answer Date Recorded Patient Health Questionnaire-2 Score 0 12/17/2023 Comments No Sex and Gender Information Value Date Recorded Sex Assigned at Not on file Legal Sex Female 12:49 PM CDT Gender Identity Not on file Sexual Orientation Not on file Last Filed Vital Signs Vital Sign Reading Time Taken Comments Blood Pressure 138/77 03/15/2024 9:34 AM PAINT LINE PRODUCTION SUPERVISOR rios e reading Pulse 73 03/15/2024 9:21 AM PAINT LINE PRODUCTION SUPERVISOR Temperature 37.2 C (98.9 F) 03/15/2024 9:21 AM PAINT LINE PRODUCTION SUPERVISOR Respiratory Rate 18 03/15/2024 9:21 AM PAINT LINE PRODUCTION SUPERVISOR Oxygen Saturation 99% 03/15/2024 9:21 AM PAINT LINE PRODUCTION SUPERVISOR Inhaled Oxygen Concentration - - Weight 79.8 kg (176 lb) 03/15/2024 9:21 AM PAINT LINE PRODUCTION SUPERVISOR Height 172.7 cm (5' 8 ) 03/15/2024 9:21 AM PAINT LINE PRODUCTION SUPERVISOR Body Mass Index 26.76 03/15/2024 9:21 AM PAINT LINE PRODUCTION SUPERVISOR Plan of Treatment Upcoming Encounters Date Type Department Care Team (Late st Contact Info) Description 11/08/2024 8:30 AM CDT Office Visit [facility] Family Medicine [facility] [address] [place] [phone] Ashli Acevedo MD [address] [place] [address] [phone] 12/15/2024 7:40 AM CDT Allied Health/Nurse Visit [facility] Family Medicine [facility] [address] [place] [phone] Ashli Acevedo MD [address] [place] [address] 12/19/2024 9:10 AM CDT Office Visit [facility] Family Medicine - [place] [address] [place], [place] [address] Ashli Acevedo MD [address] [place] [address] Health Maintenance Due Date Last Done Comments Hepatitis C 1963 Zoster Vaccines (1 of 2) 1996 Annual Medicare Wellness Visit 11/02/2011 Dexa Scan (General) 11/02/2011 Pneumococcal Vaccine: 65+ Years (2 of 2 - PPSV23 or PCV20) 04/21/2020 04/21/2019 RSV Immunization or 60+ Years (1 - 1-dose 75+ series) 2021 COVID-19 Vaccine ( - season) 2023 03/07/2021, 06/12/2020, 05/22/2020 PHQ-2 (Physician False Pass) 03/30/2024 12/17/2023 DTaP, Tdap and Td Vaccines (2 - Td or Tdap) 03/01/2028 03/01/2018 Influenza Adult Completed 01/14/2024, 110 10/2021, 02/11/2021, Additional history exists Meningococcal B Vaccine Aged Out No l onger eligible based on patient's age to complete this topic Meningococcal Vaccine Aged Out No megan susan eligible based on patient's age to complete this topic RSV Immunizations Under 20 Months Aged Out No longer eligible based on patient's age to complete this topic Insurance [employer] Care Teams Beef Cattle Farm Worker Relationship Specialty Start Date End Date Ashli Acevedo MD [address] [place] [address] [phone] PCP - General FAMILY PRACTICE 12/17/23
--- OUTSIDE RECORDS SUMMARY | 2024-06-15 08:11 | XMS_ITS | Referral Summary ---
Author Organization [place] [id number] Address [address] [place] [address] Care Team Providers Care Manager Qa Name Role Phone Daniel Araujo MD Primary Care Provider [phone] Encounters Date Type Department Care Team Description 05/02/2024 10:00 AM CRACK OFF PERSON Office Visit [facility] ENT [address] [facility] Medical Office Building [address] [place] [address] Kevin Araiza MD Hypertrophic scar (Primary Dx); History of basal cell carcinoma; Facial pain from Last 3 Months Allergies No known active allergies Medications simvastatin (ZOCOR) 40 mg tabletIndicatio ns:hyperlipidem ia Take 1 tablet (40 mg total) by mouth nightly [address] (PROTONIX) 40 mg EC tabletIndicatio ns:Treatment of Non-Bleeding Gastric Disorder Take 1 tablet (40 mg total) by mouth nightly 4 Active amitriptyline (ELAVIL) 25 mg tabletIndicatio ns:Migraine Prevention Take 1 tablet (25 mg total) by mouth nightly 0 Active ferrous sulfate 325 mg (65 mg of elemental iron) tablet Take 1 tablet (65 mg of elemental iron total) by mouth nightly Active SUMAtriptan (IMITREX) 50 mg tablet Take 1 tablet (50 mg total) by mouth once as needed for migraine Active sodium chloride (OCEAN) 0.65 % nasal spray Administer 5 sprays into each nostril 5 (five) times a day 15 mL 3 4 Active Additional Information Patient taking differently:5 spray each nostril 5 times daily,Indications: Dry Nose, Nasal Congestion, Informant: Self, Reported on 10/26/2023 Active Problems Problem Noted Date Diagnosed Date Abscess of right ear canal 11/05/2023 Nasal valve stenosis 10/09/2023 Basal cell carcinoma (BCC) of skin of nose 09/21 Planned postoperative wound closure 09/22/2023 Social History Tobacco Use Types Packs/Day Years Used Date Smoking Tobacco: Never Smokeless Tobacco: Never Tobacco Cessation:Counseling Given: Not Answered AUDIT-C Answer Date Recorded Q1: How often do you have a drink containing alcohol? Never 11/05/2023 Q2: How many drinks containi ng alcohol do you have on a typical day when you are drinking? Patient does not drink Q3: How often do you have si x or more drinks on one occasion? Never 11/05/2023 Personal Safety Answer Date Recorded Have you ever been in or are you currently in a harmful physical or emotional relationship or is someone making you feel afraid or unsafe? Denies 11/05/2023 Comments No Sex and Gender Information Value Date Recorded Sex Assigned at Not on file Legal Sex Female 9:23 AM CDT Gender Identity Female 09/20/2023 10:59 AM CDT Sexual Orientation Straight 09/20/2023 10 :59 AM CDT Last Filed Vital Signs Vital Sign Reading Time Taken Comments Blood Pressure 158/80 02/22/2024 9:24 AM CRACK OFF PERSON Pulse 94 02/22/2024 9:24 AM CRACK OFF PERSON Temperature 36.2 C (97.2 F) 11/05/2023 2:50 PM CDT Respiratory Rate 22 11/05/2023 3:20 PM CDT Oxygen Saturation 97% 11/05/2023 3:20 PM CDT Inhaled Oxygen Concentration - - Weight 81.6 kg (180 lb) 11/05/2023 12:25 PM CDT Height 170.2 cm (5' 7 ) 11/05/2023 12:25 PM CDT Body Mass Index 28.19 11/05/2023 12:25 PM CDT Plan of Treatment Not on file Insurance [employer]IC[employer] PPO [employer] MED[employer] PPO Advance Directives For more information, please contact: [phone] Documents on File Type Date Recorded Patient Supervisor Kennel Expl anation Power of Plastic Panel Installer 11/05/2023 12:16 PM Power of Plastic Panel Installer 10/08/2023 11:35 AM Care Teams Manager Qa Relationship Specialty Start Date End Date Daniel Araujo MD [address] [place] [address] STEPHAN SMITH [id number] PCP - General Family Medicine 09/21/23
--- OUTSIDE RECORDS SUMMARY | 2024-06-15 08:11 | XMS_ITS | Clinical Summary ---
Author Organization [place] [id number] [facility] Address [address] [place] [address] Care Team Providers Care Design Center Consultant Name Role Phone Daniel Araujo MD Primary Care Provider [phone] Allergies No known active allergies Medications simvastatin [...] nose 09/21 Planned postoperative wound closure 09/22/2023 Encounters Date Type Department Care Team Description 05/02/2024 10:00 AM SUBASSEMBLER Office Visit [facility] ENT [address] [facility] Medical Office Building [address] [place] [address] Kevin Araiza MD Hypertrophic scar (Primary Dx); History of basal cell carcinoma; Facial pain from Last 3 Months Surgical History Surgery Date Site/Laterality Comments BREAST MASS EXCISION 03/30/1971 - 03/29/1972 Left TUBAL LIGATION 03/30/1986 - 03/29/1987 CATARACT EXTRACTION 03/30/2021 - 03/29/2022 Bilateral MOHS SURGERY 03/30/2011 - 03/29/2012 [facility] FACIAL SURGERY 10/08/2023 Medical History Medical History Date Comments Migraine HL (hearing loss) Cancer (HCC) PONV (postoperative nausea and vomiting) Family History Medical History Relation Name Comments Anesthesia problems Neg Hx Social History Tobacco Use Types Packs/Day Years [...] Orientation Straight 09/20/2023 10 :59 AM CDT Obstetrics History Last Filed Vital Signs Vital Sign Reading Time Taken Comments Blood Pressure 158/80 02/22/2024 9:24 AM SUBASSEMBLER Pulse 94 02/22/2024 9:24 AM SUBASSEMBLER Temperature 36.2 C (97.2 F) 11/05/2023 2:50 PM CDT Respiratory Rate 22 11/05/2023 3:20 PM CDT Oxygen Saturation 97% 11/05/2023 3:20 PM CDT Inhaled Oxygen Concentration - - Weight 81.6 kg (180 lb) 11/05/2023 12:25 PM CDT Height 170.2 cm (5' 7 ) 11/05/2023 12:25 PM CDT Body Mass Index 28.19 11/05/2023 12:25 PM CDT Plan of Treatment Health Maintenance Due Date Last Done Comments Depression Screening 1945 Hepatitis C Screening 1945 Osteoporosis Screening-Bone Density Scan 1945 Hepatitis B Screening 1964 Zoster Vaccine (1 of 2) 1996 Well Visit 65+ 11/02/2011 Pneumococcal vaccine 65+ (2 of 2 - PPSV23) 04/21/2020 04/21/2019 Covid-19 Vaccine (4 - 2023-2 5 season) 2023 03/07/2021, 06/12/2020, 05/22/2020 Fall Risk Assessment 11/04/2024 11/05/2023 DTaP/Tdap/Td Vaccine (2 - Td or Tdap) 03/01/2028 03/01/2018 Influenza Vaccine Completed 01/14/2024, , 02/11/2021, [place] [address] [place] [address] [employer] MEDIC[employer] PPO Josselyn SAMEERJANNY [place] [id number] [employer] MED[employer] PPO Advance Directives For more information, please contact: [phone] Documents on File Type Date Recorded Patient Ic Designer Custom Expl anation Power of Housecleaner 11/05/2023 12:16 PM Power of Housecleaner 10/08/2023 11:35 AM Care Teams Design Center Consultant Relationship Specialty Start Date End Date Daniel Araujo MD [address] [place] [address] STEPHAN SMITH [phone] PCP - General Family Medicine 09/21/23
[2024-06-15] MEDS: MECLIZINE HCL 25 MG TABLET PO (08:39)
[2024-06-15 09:50] VITALS: BP 160/72; PULSE 79; RESP 20; O2SAT 99
[2024-06-15 10:32] VITALS: BP 136/59; PULSE 63; RESP 13; O2SAT 98
== END 2024-06-15 11:47 | disposition home or self-care (01) ==
PROVIDERS: Emergency Provider Student in an Organized Health Care Education/Training Program; PCP Student in an Organized Health Care Education/Training Program
DX: I65.22 Occlusion and stenosis of left carotid artery (principal); R42 Dizziness and giddiness; R55 Syncope and collapse; D50.9 Iron deficiency anemia, unspecified; E78.5 Hyperlipidemia, unspecified; K21.9 Gastro-esophageal reflux disease without esophagitis; N39.46 Mixed incontinence; Z85.828 Personal history of other malignant neoplasm of skin; Z98.42 Cataract extraction status, left eye; Z98.41 Cataract extraction status, right eye
CPT/HCPCS: 36415; 70496; 70498; 80053; 84484; 85025; 93005; 99284; A9270; Q9967